=== PATIENT | female | born 1990 | race Caucasian/White ===

== ENCOUNTER 2021-10-02 11:47 | Inpatient (IN) | payer OTHER ==
[2021-10-02] MEDS ORDERED: HYDROmorphone 1 MG/ML 1 ML SYRINGE IVP STA (12:24)
--- NOTE | 2021-10-02 12:24 | XR ---
EXAMINATION TYPE: XR femur LT DATE OF EXAM: 10/02/2021 CLINICAL HISTORY: Pain TECHNIQUE: Two views of the left femur are obtained. COMPARISON: None FINDINGS: There is markedly displaced comminuted fracture distal diaphysis of the femur. Soft tissue swelling noted. Proximal femur are intact. IMPRESSION: 1. Comminuted markedly displaced fracture of the distal diaphysis left femur.
--- NOTE | 2021-10-02 12:42 | ED ---
Trauma HPI - General Chief Complaint: Trauma Stated Complaint: femur fracture Time Seen by Provider: 10/02/21 11:57 Source: patient, EMS, RN notes reviewed Mode of arrival: EMS Limitations: no limitations - History of Present Illness Initial Comments: 30-year-old female who was trying to move a steel file cabinet down stairs by herself when the cat the father left leg. She complained of pain to the left distal thigh no other injuries reported. No head neck or back pain. No loss of consciousness. Last tetanus shot was approximately 2 years ago. She's had ALLERGIC to any medication. The patient was brought in by EMS she was in a Britt splint. She had been given fentanyl with some relief of her pain. She initially did not require pain medication MD Complaint: injury - Related Data Home Medications Medication Instructions Recorded Confirmed Dextroamphetamine/Amphetamine 20 mg PO QAM 11/18/13 11/18/13 [Adderall Xr] Previous Rx's Medication Instructions Recorded Acetaminophen-Codeine 300-30mg 1 each PO Q4H PRN #20 tablet 11/18/13 [Tylenol w/codeine #3] Sulfamethox-Tmp 800-160Mg [Bactrim 1 each PO Q12HR #14 tab 11/18/13 DS 800-160 mg] Allergies Allergy/AdvReac Type Severity Reaction Status Date / Time bee venom protein (honey bee) Allergy Anaphylaxis Verified 10/02/21 11:59 Review of Systems ROS Statement: Those systems with pertinent positive or pertinent negative responses have been documented in the HPI. ROS Other: All systems not noted in ROS Statement are negative. Past Medical History Past Medical History: No Reported History History of Any Multi-Drug Resistant Organisms: None Reported Past Surgical History: No Surgical Hx Reported, Section Additional Past Surgical History / Comment(s): DNC Past Psychological History: No Psychological Hx Reported, Anxiety, Depression Smoking Status: Never smoker Past Alcohol Use History: Occasional Past Drug Use History: Marijuana General Exam - General Exam Comments Initial Comments: This is a well-developed well-nourished awake alert oriented 2 female with a [place] Coma Scale of 15 Limitations: no limitations General appearance: alert, anxious, in distress Head exam: Present: atraumatic, normocephalic, normal inspection Eye exam: Present: normal appearance, PERRL, EOMI. Absent: scleral icterus, conjunctival injection, periorbital swelling ENT exam: Present: normal exam, mucous membranes moist Neck exam: Present: normal inspection. Absent: tenderness, meningismus, lymphadenopathy Respiratory exam: Present: normal lung sounds bilaterally. Absent: respiratory distress, wheezes, rales, rhonchi, stridor Cardiovascular Exam: Present: regular rate, normal rhythm, normal heart sounds. Absent: systolic murmur, diastolic murmur, rubs, gallop, clicks GI/Abdominal exam: Present: soft, normal bowel sounds. Absent: distended, tenderness, guarding, rebound, rigid Extremities exam: Present: tenderness, normal capillary refill, other (Examination left lower extremity demonstrates a deformity seen to the distal fe mur above the knee evidence of a 2 cm laceration lateral aspect and the adjoining area. No active bleeding seen at this time no definitive bony intrusion.). Absent: pedal edema, joint swelling, calf tenderness Back exam: Present: normal inspection, full ROM. Absent: tenderness Neurological exam: Present: alert, oriented X3, CN II-XII intact Psychiatric exam: Present: normal affect, normal mood Skin exam: Present: warm, dry, normal color. Absent: intact (As stated above), rash Course Vital Signs 10/02/21 10/02/21 11:50 12:01 Temperature 98.4 F Pulse Rate 64 Pulse Rate [ 97 Pulse Oximetery ] Respiratory 16 16 Rate Blood Pressure 108/75 Blood Pressure 107/70 [Left Arm] O2 Sat by Pulse 99 Oximetry Medical Decision Making - Medical Decision Making I did discuss the findings with the patient as well as her also with orthopedics on-call Sarah Lino covering for Dr. Pope. Patient will be admitted she'll be nothing by mouth at this time she did receive IV antibiotics in the emergency department tetanus shot is up-to-date. She did receive pain medication additional to the medication given by paramedics. - Lab Data Result diagrams: 10/02/21 12:33 Lab Results 10/02/21 Range/Units 12:33 WBC 5.3 (3.8-10.6) k/uL RBC 4.32 (3.80-5.40) m/uL Hgb 13.8 (11.4-16.0) gm/dL Hct 41.1 (34.0-46.0) % MCV 95.0 (80.0-100.0) fL MCH 31.9 (25.0-35.0) pg MCHC 33.6 (31.0-37.0) g/dL RDW 12.6 (11.5-15.5) % Plt Count 191 (150-450) k/uL MPV 7.1 Neutrophils % 67 % Lymphocytes % 24 % Monocytes % 4 % Eosinophils % 2 % Basophils % 0 % Neutrophils # 3.6 (1.3-7.7) k/uL Lymphocytes # 1.3 (1.0-4.8) k/uL Monocytes # 0.2 (0-1.0) k/uL Eosinophils # 0.1 (0-0.7) k/uL Basophils # 0.0 (0-0.2) k/uL - Radiology Data Radiology results: report reviewed (Imaging reviewed and shows evidence of a comminuted fracture of the distal left femur.), image reviewed Disposition Clinical Impression: Thigh laceration, Open left femoral fracture Disposition: ADMITTED IP TO THIS [facility] Condition: Fair Referrals: Nadine Bobby MD [Primary Care Provider] - 1-2 days Decision Date: 10/02/21 Decision Time: 12:45
[2021-10-02 12:50] LABS: Basophils % (A) 0 %; Eosinophils # (A) 0.1 k/uL (0-0.7); Eosinophils % (A) 2 %; HCT 41.1 % (34.0-46.0); HGB 13.8 gm/dL (11.4-16.0); Lymphocytes # (A) 1.3 k/uL (1.0-4.8); Lymphocytes % (A) 24 %; MCH 31.9 pg (25.0-35.0); MCHC 33.6 g/dL (31.0-37.0); Mean Platelet Volume 7.1; Monocytes # (A) 0.2 k/uL (0-1.0); Monocytes % (A) 4 %; Neutrophils # (A) 3.6 k/uL (1.3-7.7); Neutrophils % (A) 67 %; Platelet Count 191 k/uL (150-450); RBC 4.32 m/uL (3.80-5.40); RDW 12.6 % (11.5-15.5); WBC 5.3 k/uL (3.8-10.6)
[2021-10-02 13:08] LABS: ALT 27 U/L (4-34); AST 31 U/L (14-36); African American GFR (CKD) >90 (>60 ml/min/1.73 sqM); Albumin 4.2 g/dL (3.5-5.0); Alkaline Phosphatase 54 U/L (38-126); Anion Gap 4 mmol/L; Blood Urea Nitrogen 16 mg/dL (7-17); Calcium 8.7 mg/dL (8.4-10.2); Carbon Dioxide 28 mmol/L (22-30); Chloride 103 mmol/L (98-107); Glucose 92 mg/dL (74-99); Non-African American GFR(CKD) >90 (>60 ml/min/1.73 sqM); Sodium 135 mmol/L (137-145); Total Bilirubin 0.6 mg/dL (0.2-1.3); Total Protein 6.7 g/dL (6.3-8.2)
[2021-10-02] MEDS ORDERED: NALOXONE 0.4 MG/ML 1 ML VIAL IV PRN ×2 (13:08→18:29)
[2021-10-02 13:21] LABS: INR 0.9 (<1.2); Prothrombin Time 10.4 sec (9.0-12.0)
[2021-10-02] MEDS: HYDROmorphone 1 MG/ML 1 ML SYRINGE IVP PRN ×2 (13:27→22:53)
[2021-10-02 13:28] LABS: Partial Thromboplastin Time 20.2 sec (22.0-30.0)
[2021-10-02] MEDS: SODIUM CHLORIDE 0.9% 1,000 ML IV SCH ×2 (13:31→22:55)
--- NOTE | 2021-10-02 13:36 | P.HPOR ---
History of Present Illness H&P Date: 10/02/21 Chief Complaint: Left leg injury The patient is a 30 y/o female who presented to the emergency department at [facility] after sustaining an injury to her left leg. She states she was moving a file cabinet down stairs and the file cabinet fell on her leg. She had immediate pain in the leg and it was deformed. X-rays in the ER revealed a displaced distal femur fracture. She denies any major medical conditions but does have ADHD and anxiety. She denies any other injuries including hitting her head. The patient was admitted to orthopedics for surgical intervention. Review of Systems Constitutional: Denies chills, Denies fatigue, Denies fever Cardiovascular: Denies chest pain, Denies shortness of breath Respiratory: Denies cough Gastrointestinal: Denies diarrhea, Denies nausea, Denies vomiting Musculoskeletal: Reports as per HPI, Reports fractures Psychiatric: Reports anxiety Past Medical History Past Medical History: No Reported History History of Any Multi-Drug Resistant Organisms: None Reported Past Surgical History: No Surgical Hx Reported, Section Additional Past Surgical History / Comment(s): DNC Past Psychological History: No Psychological Hx Reported, Anxiety, Depression Smoking Status: Never smoker Past Alcohol Use History: Occasional Past Drug Use History: Marijuana Medications and Allergies Home Medications Medication Instructions Recorded Confirmed Type Dextroamphetamine/Amphetamine 20 mg PO BID@0800,1400 10/02/21 10/02/21 History [Adderall 20 mg Tablet] L.acidoph,Paracasei, B.lactis 1 cap PO DAILY 10/02/21 10/02/21 History [Probiotic] Loratadine [Claritin] 10 mg PO DAILY 10/02/21 10/02/21 History Venlafaxine HCl ER [Effexor Xr] 37.5 mg PO HS 10/02/21 10/02/21 History Allergies Allergy/AdvReac Type Severity Reaction Status Date / Time bee venom protein (honey bee) Allergy Anaphylaxis Verified 10/02/21 13:18 hornet venom Allergy Anaphylaxis Verified 10/02/21 13:18 morphine AdvReac Nausea & Verified 10/02/21 13:18 Vomiting Physical Examination Osteopathic Statement: *. No significant issues noted on an osteopathic structural exam other than those noted in the History and Physical/Consult. The patient is a 30 y.o. female in no acute distress. She is alert and oriented x3. Head is normocephalic, atraumatic. Exam of the left leg reveals a small laceration to the lateral aspect of the leg (mid thigh). No active bleeding present. There is a deformity to leg. She is currently on the traction board from EMS. Calf is soft and nontender. Good pedal pulse present +5/5. Some tingling noted to the lower leg and foot. No other injuries noted to the bilateral arms or right leg. Results X-rays of the left leg reveals a displaced distal femur fracture. - Labs Labs: Abnormal Lab Results - Last 24 Hours (Table) 10/02/21 10/02/21 Range/Units 12:33 12:33 APTT 20.2 L (22.0-30.0) sec Sodium 135 L (137-145) mmol/L H & H 10/02/21 Range/Units 12:33 Hgb 13.8 (11.4-16.0) gm/dL Hct 41.1 (34.0-46.0) % Coagulation 10/02/21 Range/Units 12:33 INR 0.9 (<1.2) Result Diagrams: 10/02/21 12:33 10/02/21 12:33 Assessment and Plan (1) Anxiety Current Visit: Yes Status: Acute Code(s): F41.9 - ANXIETY DISORDER, UNSPECIFIED SNOMED Code(s): 59572613 (2) Open left femoral fracture Current Visit: Yes Status: Acute Code(s): S72.92XB - UNSP FRACTURE OF LEFT FEMUR, INIT FOR OPN FX TYPE I/2 SNOMED Code(s): 67380820 (3) Thigh laceration Current Visit: Yes Status: Acute Code(s): S71.119A - LACERATION WITHOUT FOREIGN BODY, UNSP THIGH, INIT ENCNTR SNOMED Code(s): 714111489 Plan: The clinical and x-ray findings were discussed with the patient. The case was discussed with Dr. Casper. The patient will be NPO for retrograde nail of the left femur and I&D of the thigh wound this afternoon. Surgical risks were discussed with the patient and she would like to proceed with surgery. She will return home with her family in the next 1-2 days depending on her pain control and mobility. the patient is seen and examined at bedside. I agree with above. Acute Left traumatic femur fracture, grade 1 open, neurovasularly intact Will plan for emergent I&D with IM odette fixation. discussed at length with patient. questions answered consemt obtained for surgery today
[2021-10-02] MEDS ORDERED: ONDANSETRON 4 MG/2 ML VIAL ONE (14:20)
[2021-10-02] MEDS ORDERED: LACTATED RINGERS 1,000 ML IV ONE ×2 (14:40→18:21)
[2021-10-02] MEDS ORDERED: DEXAMETHASONE SOD PHOSPHATE 4 MG/ML 1 ML VIAL IV ONE (14:46)
[2021-10-02] MEDS ORDERED: SCOPOLAMINE 1 MG/72 HR PATCH TRANSDERM ONE (14:46)
[2021-10-02] MEDS ORDERED: PROPOFOL 10 MG/ML 20 ML VIAL IV ONE (15:42)
[2021-10-02] MEDS ORDERED: HYDROmorphone (PF) 1 MG/ML ONE (15:42)
[2021-10-02] MEDS ORDERED: ROCURONIUM 10 MG/ML (5 ML VIAL) IV ONE (15:42)
[2021-10-02] MEDS ORDERED: ePHEDrine 50 MG/ML 1 ML VIAL ONE (15:42)
[2021-10-02] MEDS ORDERED: SUCCINYLCHOLINE CHLORIDE 200 MG/10 ML VIAL IV ONE (15:42)
[2021-10-02] MEDS ORDERED: MIDAZOLAM 2 MG/2 ML VIAL ONE (15:42)
[2021-10-02] MEDS ORDERED: LIDOCAINE 2% INJ 20 MG/ML (2 ML VIAL) ONE (15:42)
[2021-10-02] MEDS ORDERED: LIDOCAINE 4% LTA KIT (4 ML) TOPICAL ONE (15:42)
[2021-10-02] MEDS ORDERED: NEOSTIGMINE 1 MG/ML 10 ML VIAL ONE (15:42)
[2021-10-02] MEDS ORDERED: GLYCOPYRROLATE 0.2 MG/ML 2 ML VIAL ONE (15:42)
[2021-10-02] MEDS ORDERED: fentaNYL (PF) 50 MCG/ML 2 ML AMP ONE (15:42)
[2021-10-02] MEDS ORDERED: SODIUM CHLORIDE 0.9% 100 ML with ceFAZolin 2 GM IV ONE ×2 (15:45)
[2021-10-02] MEDS ORDERED: VANCOMYCIN IV ONE ×2 (16:14)
[2021-10-02] MEDS ORDERED: SODIUM CHLORIDE 0.9% IV ONE ×2 (16:14)
[2021-10-02] MEDS ORDERED: ceFAZolin 3,000 MG in SODIUM CHLORIDE 0.9% IRRIGATIO 3,000 ML IRRIGATION ONE (17:58)
--- NOTE | 2021-10-02 18:18 | XR ---
Intraoperative/procedural fluoroscopic services were provided. Total fluoroscopy time 2 minutes 46 se conds with a total of 7 submitted images to PACS. Please see the operative/procedural note for furthe r details.
[2021-10-02] MEDS ORDERED: ONDANSETRON 4 MG/2 ML VIAL IVP PRN (18:29)
[2021-10-02] MEDS ORDERED: BENZOCAINE/MENTHOL LOZENG 1 EACH LOZENGE MUCOUS MEM PRN (18:29)
[2021-10-02] MEDS ORDERED: HYDROmorphone 0.5 MG/0.5 ML SYRINGE IVP PRN (18:29)
[2021-10-02] MEDS ORDERED: HYDROmorphone 1 MG/ML 1 ML SYRINGE IVP PRN (18:29)
[2021-10-02] MEDS ORDERED: ONDANSETRON 4 MG/2 ML VIAL IVP ONE (18:34)
[2021-10-02] MEDS ORDERED: HYDROmorphone 0.5 MG/0.5 ML SYRINGE IVP ONE ×4 (18:36→19:30)
--- NOTE | 2021-10-02 18:49 | P.OP ---
Date of Procedure: 10/02/21 Preoperative Diagnosis: Acute traumatic left femur shaft fracture, grade 1 open neurovascularly intact Postoperative Diagnosis: Closed acute traumatic left femur shaft fracture 2 cm laceration left thigh due to trauma without medication to the fracture site Anesthesia: GETA Pathology: other (Femoral reaming sent to pathology) Condition: stable Disposition: PACU Description of Procedure: Preoperative diagnosis: Acute traumatic left femur shaft fracture, grade 1 open neurovascularly intact Postoperative diagnosis: Closed acute traumatic left femoral shaft fracture 2 cm laceration left thigh, traumatic not medicating with the fracture site Procedure: Irrigation and excisional debridement of left thigh laceration with exploration and no findings of Medication to the fracture site Closed reduction of left femur shaft fracture Retrograde intramedullary rodding fixation of left femur shaft fracture Use of fluoroscopic guidance Surgeon: Dr. Pennie Booker.: Sarah Lino who is present that the entire the case persistence during positioning dissection exposure placement of hardware and closure Anesthesia: Gen. Estimated blood loss: Approximately 400 mL Components implanted: [employer] retrograde InterTAN femoral odette measuring 34 cm x 11 mm diameter with 2 distal locking screws and 1 proximal locking screw Specimen: Femoral reamings to pathology Disposition: To recovery room in good stable condition Operative indications The patient sustained a injury and suffered a left distal femoral shaft fracture acutely when she was on some stairs trying to move a large file cabinet she slipped and fell cabinet fell onto her and onto her left femur. She had to move the file cabinet off of her leg she had her cell phone with her and was able to call EMS who found her there on the stairs brought her to the emergency room. She is very aware of her femur which was displaced and angulated. She noticed bleeding at her left thigh as well. We were involved in the case in regard to his hip fracture. The emergency room evaluated her and felt that she had high potential for a open femur fracture given the severe displacement of the femoral shaft and the laceration over the the area of the fracture site at her thigh. We had high suspicion for open fracture and we felt that it was emergency room patient back to the operating room for irrigation and debridement of the laceration with exploration and fixation stabilization of the femur fracture. After evaluation it was determined that they would be a candidate for left femur irrigation and debridement with internal fixation and stabilization via surgical intervention. This would give them the best chance of mobilization and ambulation. We discussed the range of treatment options from conservative to surgical. They elected proceed with surgical intervention. We answered their questions to the best of our ability healing which they can understand. They signed an informed consent. Operative summary After obtaining informed consent evaluation by anesthesia, preoperative evaluation and clearance for medical service, the patient was identified and prepped [place] area and the surgical site was marked. There brought to the operating room where the given appropriate anesthesia by the anesthesia department in standard fashion without any complications. Once the anesthesia was established we were able to position the patient. Patient was placed supine on the operating table after being sedated and intubated in standard fashion with her airway and C-spine secured and stabilized in good neutral alignment and position. With her supine position where able to manipulate the leg and evaluate fracture at left femur. C-arm was brought in and we performed a closed reduction technique at the left femur. Once patient was well positioned lower extremity was prepped and draped in normal standard sterile fashion. An appropriate keystone protocol and timeout was completed and were able to proceed with surgery. I started with exploring the laceration at left thigh. It was apparently a 2 cm laceration I was able to expose the area there was hematoma at the area and there was some blood and fat from the site. I extended the laceration proximally and distally and was able to explore the area. There is approximately a 5 cm x 2 cm x 3 cm hematoma which was evacuated. There is some denuded tissue which was excised. I was able to palpate along the muscle and the fascia and there was no evidence of medication through the muscle were no evidence of medication to the fracture site. I did careful excision and irrigation and debridement to evaluate the area and there was no evidence of medication to the fracture site. I felt that it did not medicate and deemed the fracture to be closed. The wound was copiously irrigated and suctioned dry. With the laceration addressed I then turned my attention to the fracture. We again performed a closed reduction technique and with gentle traction and radiolucent triangles we are able to get good reduction of the fracture and the fracture and femur back out to length. I then established access for retrograde femoral nail. Incision was made over the patellar tendon at the midline dissection down the peritenon was split and then the The tendon was split in line with its fibers. I was able to access the knee joint and gain access to the distal femur. I was able to starting guidepin at the [place] and stance line at good center position I was able to advance the gu chela pin under C-arm guidance anterior to [place] and stance line at good center position at the femur in AP and lateral projections. With this intact I then used a starting drill with a soft tissue protector was able establish starting drill hole at the distal femur. With this completed the wound was irrigated suctioned dry was then able to pass a guide odette through the distal femur and holding the fracture in good alignment and position we passed across the fracture site into the proximal femoral shaft up to the level of the lesser trochanter. This was checked and found that good alignment good position. With the fracture good alignment and position we measured off the guide odette for a 34 mm odette. We then began reaming using soft tissue protectors protect the tendon and the knee joint we reamed sequentially from a 9 mm up to a 13 mm reamer holding the fracture in good reduced position. MR reamings were sent for pathology. With this completed we then able to choose the appropriate 11 x 34 mm odette was attached to the appropriate jig and malleted in a retrograde fashion over the guide odette across the fracture site and into the proximal femur up to the level of lesser trochanter repairing the distal odette appropriately within the distal femur. The fracture in excellent alignment and position with the odette and excellent alignment and position having good fit and fill at the intramedullary canal. With this in position I then was able to use the jig to establish distal locking screws. We used the jig and a probing sleeves to establish 2 distal locking screws medially and laterally. There were drilled measured and placed in excellent alignment and position with excellent bony purchase. With this completed we had good rotation Alignment and position and where we'll then remove the distal jig and then prepare for placement of the proximal locking screw. Then using a freehand technique we are able place a small incision and the drill through the proximal locking screw in an anterior posterior fashion it was measured and placed with a screw placed at the locking hole proximal femur and excellent alignment and position with excellent bony purchase. This gave excellent security of the odette within the femur. The hip and knee were taken through a range of motion and had excellent range of motion without any evidence of instability. All wounds were copiously irrigated and suctioned dry as was the knee joint itself. We were able to confirm position with C-arm guidance. Good hemostasis was maintained. The peritenon was closed with 4-0 Monocryl. Subcutaneous tissue was closed 2-0 Vicryl and subcuticular tissue was closed with 4-0 Vicryl. At the laceration we closed the skin with 3-0 nylon. The wounds are cleaned and dried and dressed appropriately and an Abdi wrap was placed over her knee and proximal thigh after the incisions were glued and dressed appropriately. Drapes were broken down, the hip was held in stable position with the post being removed safely once the positioning was stabilized. The patient was then transferred back to their hospital bed being careful to maintain the hip and C- spine alignment and airway. Once stable to patient was transferred back to the postanesthesia care unit to be readmitted for pain control and DVT prophylaxis medical management and monitoring and mobilization we will continue follow patient closely throughout their postoperative course. She will be admitted for prophylactic antibiotics 50% weightbearing with training with physical therapy observation DVT prophylaxis and monitoring we'll continue to follow her closely.
[2021-10-02] MEDS ORDERED: fentaNYL (PF) 50 MCG/ML 2 ML AMP IVP ONE ×3 (18:50→19:14)
[2021-10-02] MEDS ORDERED: diphenhydrAMINE 50 MG/ML 1 ML VIAL IVP ONE (19:15)
[2021-10-02] MEDS: HYDROcodone/APAP 5-325MG 1 EACH TAB PO PRN (20:27)
[2021-10-02 20:51] LABS: Basophils % (A) 0 %; Eosinophils % (A) 0 %; HCT 32.6 % (34.0-46.0); Lymphocytes # (A) 0.6 k/uL (1.0-4.8); Lymphocytes % (A) 6 %; MCH 31.1 pg (25.0-35.0); MCHC 32.7 g/dL (31.0-37.0); MCV 95.2 fL (80.0-100.0); Mean Platelet Volume 7.2; Monocytes # (A) 0.2 k/uL (0-1.0); Monocytes % (A) 2 %; Neutrophils # (A) 7.9 k/uL (1.3-7.7); Neutrophils % (A) 91 %; Platelet Count 205 k/uL (150-450); RBC 3.43 m/uL (3.80-5.40); RDW 12.1 % (11.5-15.5); WBC 8.7 k/uL (3.8-10.6)
[2021-10-02 20:59] LABS: HGB 10.7 gm/dL (11.4-16.0)
[2021-10-02] MEDS: VENLAFAXINE HCL ER 37.5 MG CAP PO SCH (22:00)
[2021-10-02 23:46] LABS: Appearance,Urine Cloudy (Clear); Bacteria,Urine Occasional /hpf; Bilirubin,Urine Negative (Negative); Blood,Urine Small (Negative); Color,Urine Light Yellow; Glucose,Urine (UA) Negative (Negative); Ketones,Urine Negative (Negative); Leukocyte Esterase,Urine Negative (Negative); Mucus,Urine Rare /hpf; Nitrite,Urine Negative (Negative); Protein,Urine Negative (Negative); RBC,Urine 28 /hpf (0-5); Specific Gravity,Urine 1.013 (1.001-1.035); Squamous Epithelial Cell,Urine 6 /hpf (0-4); Urobilinogen,Urine <2.0 mg/dL (<2.0); WBC,Urine 1 /hpf (0-5)
[2021-10-03] MEDS: HYDROcodone/APAP 5-325MG 1 EACH TAB PO PRN ×3 (00:22→12:19)
[2021-10-03] MEDS: SODIUM CHLORIDE 0.9% 1,000 ML IV SCH ×4 (06:11→08:13)
[2021-10-03] MEDS: HYDROmorphone 1 MG/ML 1 ML SYRINGE IVP PRN (08:06)
[2021-10-03] MEDS: DEXTROAMPHETAMINE PO SCH ×2 (08:18→12:41)
[2021-10-03] MEDS: AMPHETAMINE PO SCH ×2 (08:18→12:41)
--- NOTE | 2021-10-03 08:49 | P.PN ---
Progress Note - Text Progress Note Date: 10/03/21 Postoperative day #1 Patient is seen and examined today at bedside. The patient has some pain around the surgical site as expected. Pain is being controlled with medication. She denies any chest pain or shortness breath. She denies any numbness tingling or ankle or foot. Physical Exam Afebrile with stable vital signs Abdomen is soft nontender. Chest has good excursion deep and space expiration The incision site is covered with her Abdi wrap dressing. Her thigh and calf are soft and nontender. She has sustained dorsal to plantar flexion and EHL intact. Extremities have not had neurologic change from prior to surgery. Calves and thighs were soft nontender without evidence of DVT. Assessment/Plan Postoperative day #1 status post retrograde intramedullary rodding of left femur for her acute traumatic femur fracture with superficial laceration Patient is progressing as expected from the surgery. I am not classifying the fracture as an open fracture. I think that it is a fracture that is traumatic with a laceration as well. I think we can discontinue her prophylactic antibiotics after 24 hours. We will continue to increase the patient's mobilization with therapy. We will start to get her up out of bed with therapy and she may do 50% weightbearing. She may do gentle range of motion at her ankle knee and hip as she tolerates. We will continue pain control with oral or IV medications. We'll continue to follow patient closely. If she is comfortable with going home today and she is able to void freely and her pain is controlled until be okay for discharge home however if she is unable to be safe independently then she may need to stay another night.
--- NOTE | 2021-10-03 08:57 | P.DS ---
Providers Date of admission: 10/02/21 13:09 Attending physician: Herb Casper Consults: 10/02/21 18:29 Consult Physician Routine Consulting Provider: Francisca Higginbotham Consult Reason/Comments: medical management Do you want consulting provider notified?: Yes Primary care physician: Nadine Bobby - Discharge Diagnosis(es) (1) Anxiety Current Visit: Yes Status: Acute (2) Open left femoral fracture Current Visit: Yes Status: Acute (3) Thigh laceration Current Visit: Yes Status: Acute Hospital Course: The patient presented on the day of admission as per their operative note. She had acute traumatic left femur fracture which was believed to be open at the time she was seen in the emergency room. She underwent emergent irrigation and debridement with intramedullary fixation as per her operative note. Physical Exam The incision site is clean dry and intact. There is no erythema no drainage. There is no purulence no evidence of infection. Abdomen soft and nontender. Chest has good excursion with deep inspiration and expiration. The patient has active and passive range of motion intact at the upper and lower extremities. There is no acute change in neurologic status. Hospital Course After surgery and exploration of the wound was believed that this is not an open fracture and she had a laceration as well as a acute traumatic femur fracture. These issues have been addressed properly and she underwent intramedullary fixation with irrigation and debridement of the laceration. She is making good progress. The patient has been making good progress postoperatively. They have completed the prophylactic antibiotics without any signs or symptoms of infection. The patient has been able to advance their diet, and is tolerating diet adequately. The pain was initially controlled with IV medications and is now controlled appropriately with oral medications. The patient has been able to increase their mobilization. The patient has progressed appropriately. I think they are in good stable condition for discharge today if she is able to mobilize adequately with 50% weightbearing and is safe with her mobilization and she is voiding freely. They will be sent home with appropriate prescriptions. She may weight-bear with 50% weightbearing on left lower extremity. I answered their questions to the best of my ability in a language that they can understand and they are agreeable with the plan. They will follow up as directed in approximately one week or sooner should having problems. Patient Condition at Discharge: Fair Plan - Discharge Summary Discharge Rx Participant: Yes New Discharge Prescriptions: New Aspirin 325 mg PO DAILY #45 tab HYDROcodone/APAP 5-325MG [Brule 5-325] 1 tab PO Q4HR PRN 3 Days #42 tab PRN Reason: Pain No Action Dextroamphetamine/Amphetamine [Adderall 20 mg Tablet] 20 mg PO BID@0800,1400 Loratadine [Claritin] 10 mg PO DAILY Venlafaxine HCl ER [Effexor Xr] 37.5 mg PO HS L.acidoph,Paracasei, B.lactis [Probiotic] 1 cap PO DAILY Discharge Medication List Dextroamphetamine/Amphetamine [Adderall 20 mg Tablet] 20 mg PO BID@0800,1400 10/02/21 [History] L.acidoph,Paracasei, B.lactis [Probiotic] 1 cap PO DAILY 10/02/21 [History] Loratadine [Claritin] 10 mg PO DAILY 10/02/21 [History] Venlafaxine HCl ER [Effexor Xr] 37.5 mg PO HS 10/02/21 [History] Aspirin 325 mg PO DAILY #45 tab 10/03/21 [Rx] HYDROcodone/APAP 5-325MG [Brule 5-325] 1 tab PO Q4HR PRN 3 Days #42 tab 10/03/21 [Rx] Follow up Appointment(s)/Referral(s): Nadine Bobby MD [Primary Care Provider] - 1-2 days Herb Casper DO [Doctor of Osteopathic Medicine] - 1 Week Patient Instructions/Handouts: *Surgery [facility] - Scopalamine Patch Instructions Activity/Diet/Wound Care/Special Instructions: 50% weightbearing left lower extremity Ice to left thigh as needed, and elevate left lower extremity Okay for gentle range of motion of ankle and the and hip Discharge Disposition: HOME SELF-CARE
[2021-10-03] MEDS: LACTOBACILLUS ACIDOPH & BULGAR 1 EACH PACKET PO SCH (08:59)
[2021-10-03] MEDS: ASPIRIN 325 MG TAB PO SCH (08:59)
[2021-10-03] MEDS: SENNOSIDES-DOCUSATE SODIUM 1 EACH TAB PO SCH (08:59)
[2021-10-03] MEDS: LORATADINE 10 MG TAB PO SCH (09:00)
--- NOTE | 2021-10-03 14:11 | CONS ---
CONSULTATION DATE OF SERVICE: 10/03/2021 REASON FOR CONSULTATION: Advice regarding anxiety, depression and other medical issues, requested by Orthopedic Surgery. HISTORY OF PRESENT ILLNESS: This is a 30-year-old woman with a history of anxiety, depression, ADD, ADHD, being followed by Dr. Nadine Bobby in the outpatient setting. She was admitted with a left femur fracture after a fall. There is no history of any syncope. No history of chest pain, palpitations, headache, loss of consciousness, seizures. The patient underwent closed reduction of the left femur shaft fracture. The patient tolerated the procedure well and the patient may be discharged home by Orthopedic Surgery tomorrow. There is no history of any fever, rigor or chills. PAST MEDICAL HISTORY: History of an anxiety, depression, ADD, ADHD. HOME MEDICATIONS: Reviewed. They include Claritin. Doses and other medications are reviewed. ALLERGIES: Allergies include BEE VENOM. FAMILY HISTORY: No history of heart disease or strokes in the family. SOCIAL HISTORY: History of THC. REVIEW OF SYSTEMS: Fourteen-point review of systems negative except as mentioned earlier. PHYSICAL EXAMINATION: Pulse is 75, blood pressure 104/60, respiration 18. HEENT: Conjunctivae normal. NECK: No jugular venous distention. CARDIOVASCULAR: S1, S2 muffled. RESPIRATION: Breath sounds diminished at the bases. No rhonchi. No crackles. ABDOMEN: Soft. LEGS: Status post left femur fracture. NERVOUS SYSTEM: No focal deficit. JOINTS: No active deforming arthropathy. LABS: Reviewed. ASSESSMENT: 1. Femur fracture, status post closed reduction of the left femur shaft fracture. 2. Anxiety. 3. Depression. 4. Attention deficit disorder, attention deficit hyperactivity disorder. 5. History of THC. 6. History of nicotine dependence. RECOMMENDATIONS AND DISCUSSION: In this 30-year-old woman who presented with multiple medical issues, I would recommend to continue the current medications, resume the home medications, follow-up labs CBC, BMP with the primary physician. Avoid THC. Otherwise, we will continue to monitor. Prognosis guarded. DVT prophylaxis. Further recommendations per Orthopedic Surgery. MMODL / IJN: [id number] /
[2021-10-03] MEDS: HYDROcodone/APAP 7.5-325MG 1 EACH TAB PO PRN ×2 (14:44→21:32)
[2021-10-03] MEDS: diazePAM 5 MG TAB PO PRN (19:37)
[2021-10-03] MEDS: VENLAFAXINE HCL ER 37.5 MG CAP PO SCH (21:32)
[2021-10-03 22:00] VITALS: RESP 18
[2021-10-04] MEDS: SODIUM CHLORIDE 0.9% 1,000 ML IV SCH ×2 (00:05→09:02)
[2021-10-04] MEDS: diazePAM 5 MG TAB PO PRN (02:20)
[2021-10-04] MEDS: HYDROcodone/APAP 7.5-325MG 1 EACH TAB PO PRN (05:29)
[2021-10-04] MEDS: AMPHETAMINE PO SCH (06:53)
[2021-10-04] MEDS: DEXTROAMPHETAMINE PO SCH (06:53)
[2021-10-04 08:26] VITALS: BP 95/59; PULSE 72; TEMP 98.1
[2021-10-04] MEDS: LORATADINE 10 MG TAB PO SCH (08:28)
[2021-10-04] MEDS: SENNOSIDES-DOCUSATE SODIUM 1 EACH TAB PO SCH (08:28)
[2021-10-04] MEDS: LACTOBACILLUS ACIDOPH & BULGAR 1 EACH PACKET PO SCH (08:28)
[2021-10-04] MEDS: ASPIRIN 325 MG TAB PO SCH (08:28)
--- NOTE | 2021-10-04 09:09 | P.PN ---
Progress Note - Text Progress Note Date: 10/04/21 Orthopedics: History of present illness: Patient is a very pleasant 30-year-old female who is seen and examined at bedside for follow evaluation of her left lower extremity. She is status post retrograde intramedullary rodding of the left femur for acute traumatic femur fracture with superficial laceration. She was having some difficulty pain control yesterday. Her medicine has been changed to oral hydrocodone 7.5 mg/325 mg. Since that time her pain has been much better controlled. She's been ambulating with assistance of a walker with only 50% weightbearing on the left lower extremity without difficulty. She has kept the dressing intact for the left lower extremity. She continues to elevate and apply ice over her left lower extremity for comfort support as needed. She feels she is ready for discharge home today. Medications for oral Kimball and aspirin were previously previously sent to her preferred pharmacy. Physical Exam: Patient is awake, alert, and oriented 3 Vital signs stable Good chest excursion with deep inspiration and expiration Abdomen soft nontender No signs or symptoms of DVT; no calf pain Extensor hallucis longus, plantarflexion, and dorsiflexion positive sustained bilateral lower extremities Dressing is clean, dry, and intact with the left thigh and left knee Some pain with palpation over the left thigh Neurovascular intact left lower extremity Assessment: Status post retrograde intramedullary rodding of the left femur Acute traumatic left femur fracture Left thigh superficial laceration Left lower extremity leg pain Anxiety ADHD Plan: 1. Patient has continued to improve postoperatively after medication change. She has been able to weight-bear 50% on left lower extremity with the assistance of a walker without significant difficulty. Her pain has been controlled. Patient is currently clear for discharge from orthopedic standpoint. 2. Remain 50% weightbearing on the left lower extremity 3. Patient is encouraged to utilize a walker to aid in ambulation 4. Keep dressing over the left thigh and knee clean, dry, and intact; dressing may be removed on 10/08/2021, and patient may shower without a dressing intact at that time if the surgical sites remained clean, dry, and intact 5. Patient may work on gentle range of motion of her left hip and ankle to her tolerance 6. Patient has been prescribed aspirin. She should take this medication as prescribed to completion of this prescription 7. Patient may apply ice for comfort support over the left lower extremity as needed 8. Patient encouraged to elevate the left lower extremity for comfort support as needed 9. Patient will follow up as scheduled next 10/11/2021, at [facility] with Dr. Maximo Casper
[2021-10-04] MEDS: HYDROcodone/APAP 5-325MG 1 EACH TAB PO PRN (09:42)
== END 2021-10-04 10:28 | disposition home or self-care (01) | DRG 482 ==
LOC: EC 11:47 → 4SSUR 13:09
PROVIDERS: ADMIT Orthopaedic Surgery Orthopaedic Surgery of the Spine; ATTEND Orthopaedic Surgery Orthopaedic Surgery of the Spine
PROC: 0JBM3ZZ Excision of Left Upper Leg Subcutaneous Tissue and Fascia, Percutaneous Approach (ICD-10-PCS; 2021-10-02)
PROC: 0Y980ZZ Drainage of Left Femoral Region, Open Approach (ICD-10-PCS; 2021-10-02)
PROC: 0QSC36Z Reposition Left Lower Femur with Intramedullary Internal Fixation Device, Percutaneous Approach (ICD-10-PCS; principal; 2021-10-02 09:45)
DX: S72.132 Displaced apophyseal fracture of left femur (principal); F32.A Depression, unspecified; S71.112A Laceration without foreign body, left thigh, initial encounter; F41.9 Anxiety disorder, unspecified; F90.1 Attention-deficit hyperactivity disorder, predominantly hyperactive type; W20.8XXA Other cause of strike by thrown, projected or falling object, initial encounter; W01.0XXA Fall on same level from slipping, tripping and stumbling without subsequent striking against object, initial encounter; Y92.009 Unspecified place in unspecified non-institutional (private) residence as the place of occurrence of the external cause; Z87.891 Personal history of nicotine dependence
CPT/HCPCS: 36415; 80053; 81001; 81025; 84703; 85025; 85610; 85730; 88304; 88311; 96361; 96365; 96375; 96376; 99285